=== PATIENT | female | born 1980 | race Caucasian/White ===

== ENCOUNTER 2017-12-08 06:20 | Inpatient (IN) | payer OTHER ==
--- NOTE | 2017-12-08 06:58 | PN ---
Delivery - Delivery Vaginal Delivery: Spontaneous Episiotomy/Laceration: None EBL (cc): 250 Remarks - Remarks Remarks: Patient came fully dilated the delivered a live girl over intact perineum. Nose / Oropharynx suctioned @ perineum. Cord clamped and cut. Placenta expelled spontaneously intact.
[2017-12-08] MEDS: OXYTOCIN 20 UNITS in 0.9% NS 20 UNIT/1,000 ML INFUS.BAG IV SCH ×2 (07:00→13:00)
[2017-12-08] MEDS: IBUPROFEN 600 MG TABLET (FP) PO PRN ×3 (07:10→17:30)
[2017-12-08] MEDS ORDERED: ACETAMINOPHEN 500 MG TABLET (FP) ONE (07:15)
[2017-12-08] MEDS ORDERED: IBUPROFEN 600 MG TABLET (FP) PO ONE (07:15)
--- NOTE | 2017-12-08 07:19 | HP ---
Past Medical History - Primary Care Physician PCP:: Junior Spears - Admission Chief Complaint: 37yo P1 with at EGA 39w 2d admitted in second stage of labor. History of Present Illness: Pt with SROM at about 6 am and velia since 3am, presented fully dilated and delivered precipitously. 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: Alzheimer's, CVA, Dementia, Migraine, Multiple Sclerosis, Peripheral Neuropathy, Parkinson's, Seizure, Syncope, TIA, Vertigo, Other Cardiovascular: No: AFIB, Aneurysm, Aortic Insufficiency, Aortic Stenosis, CAD, CHF, Deep Vein Thrombosis, HTN, Hyperlipdemia, PR, Mitral Insufficiency, Mitral Stenosis, Murmur, Pulmonary Hypertension, Other Pulmonary: Yes: Asthma Gastrointestinal: No: Ascites, Cancer, Constipation, Crohn's Disease, Diverticulitis, Diverticulosis, Esophageal Varices, Gastritis, GERD, GI Bleed, Hemorrhoids, Hiatal Hernia, Inflamatory Bowel Disease, Irritable Bowel Disease, Pancreatitis, Peptic Ulcer Disease, Ulcerative Colitis, Other Hepatobiliary: No: Cirrhosis, Cholelithiasis, Cholecystitis, Choledocholithiasis , Hepatitis A, Hepatitis B, Hepatitis C, Other Renal/: No: Renal Failure, Renal Inusuff, BPH, Cancer, Hematuria, Hemodialysis , Neurogenic Bladder, Renal Calculi, UTI, Other Reproductive: No: Ectopic , Endometriosis, Fibroids, PID, Polycystic Ovary Syndrome, Postmenopausal, Other ...: 2 ...Para: 1 Heme/Onc: No: Anemia, B12 Deficiency, Bleeding Disorder, Cancer, Current Chemotherapy, Current Radiation Therapy, Hemochromatosis, Hypercoaguable State, Myeloproliferative Synd, Sickle Cell Disease, Sickle Cell Trait, Thrombocytopenia, Other Infectious Disease: No: AIDS, C-Diff, Herpes Zoster, HIV, MRSA, STD's, Tuberculosis, VREF, Other Psych: No: Addictions, Anxiety, Bipolar, Depression, Panic, Psychosis, Schizophrenia, Other Musculoskeletal: No: Bursitis, Chronic low back pain, Hemiparesis, Hemiplegia, Osteoarthritis, Paraplegia, Other Rheumatology: No: Fibromyalgia, Gout, Lupus, Rheumatoid Arthritis, Sarcoidosis, Vasculitis, Other ENT: No: Allergic Rhinitis, Sinusitis, Other Endocrine: No: Eduardo's Disease, Camanche's Disease, Diabetes Insipidus, Diabetes Mellitus, Hyperparathyroidism, Hyperthyroidism, Hypothyroidism, Osteopenia, SIADH, Other Dermatology: No: Basal Cell, Cellulitis, Eczema, Melanoma, Psoriasis, Squamous Cell, Other - Past Surgical History Past Surgical History: Yes: Cholecystectomy Hx Myomectomy: No Hx Transabdominal Cerclage: No - Smoking History Have you smoked in the past 12 months: No - Alcohol/Substance Use Hx Alcohol Use: No History of Substance Use: reports: None - Social History Usual Living Arrangement: Yes: With Spouse, With Child ADL: Independent 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 History of Recent Travel: No Home Medications - Allergies Allergies/Adverse Reactions: Allergies Allergy/AdvReac Type Severity Reaction Status Date / Time No Known Allergies Allergy Verified 12/08/17 07:21 Family Disease History - Family Disease History Family History: Unremarkable Review of Systems Findings/Remarks: Active labor and pushing - Review of Systems Constitutional: reports: Other (Labor) Eyes: reports: No Symptoms HENT: reports: No Symptoms Neck: reports: No Symptoms Cardiovascular: reports: No Symptoms Respiratory: reports: No Symptoms Gastrointestinal: reports: No Symptoms Genitourinary: reports: No Symptoms Breasts: reports: No Symptoms Reported Musculoskeletal: reports: No Symptoms Integumentary: reports: No Symptoms Neurological: reports: No Symptoms Endocrine: reports: No Symptoms Hematology/Lymphatic: reports: No Symptoms Psychiatric: reports: No Symptoms Pain Intensity: 9 Physical Exam - Maternity Constitutional: Yes: Well Nourished, No Distress, Calm Eyes: Yes: WNL, Conjunctiva Clear HENT: Yes: WNL, Atraumatic, Normocephalic Neck: Yes: WNL, Supple, Trachea Midline Cardiovascular: Yes: WNL, Regular Rate and Rhythm Lungs: Clear to auscultation, Normal air movement - Abdominal Exam/OB Fundal Height: 39 Number of Fetuses: Single Presentation: Vertex Contractions: Yes - Vaginal Exam/OB Vaginal Bleediing: No Dilatation (cm): 10 Presentation: Vertex/Position - Physical Exam Musculoskeletal: Yes: WNL Extremities: Yes: WNL Edema: No Integumentary: Yes: WNL Deep Tendon Reflex Grade: Normal +2 ...Motor Strength: WNL Psychiatric: Yes: WNL, Alert, Oriented Hemorrhage Risk Assessment - Risk Factors Medium Risk Factors: Yes: None High Risk Factors: Yes: None Risk Score: 1 Risk Level: Medium Risk Assessment/Plan 37yo P1 with at EGA 39w 2d admitted in second stage of labor. Pt proceeded to have w/o complications over intact perineum.
[2017-12-08] MEDS ORDERED: ACETAMINOPHEN 500 MG TABLET (FP) PO ONE (07:30)
[2017-12-08] MEDS ORDERED: BISACODYL 10 MG SUPP.RECT RC PRN (07:43)
[2017-12-08] MEDS ORDERED: BENZOCAINE 20% 57 GM BOTTLE TP PRN (07:43)
[2017-12-08] MEDS ORDERED: WITCH HAZEL 50% (TUCKS) 40 PAD/JAR PAD TP PRN (07:43)
[2017-12-08] MEDS ORDERED: METHYLERGONOVINE MALEATE 0.2 MG/1 ML AMP IM PRN (07:43)
[2017-12-08] MEDS ORDERED: BENZOCAINE 28 GM HEMORRHOIDAL OINTMENT TP PRN (07:43)
[2017-12-08 07:59] LABS: BASO % 0.3 % (0-2.0); EOS % 0.2 % (0-4.5); HEMATOCRIT 40.7 % (32.4-45.2); HEMOGLOBIN 13.6 GM/dL (10.7-15.3); LYMPH % 15.1 % (8-40); MCH 30.6 pg (25.7-33.7); MCHC 33.4 g/dl (32.0-36.0); MEAN CELL VOLUME 91.7 fl (80-96); MEAN PLT VOLUME 11.2 fl (7.5-11.1); MONO % 3.2 % (3.8-10.2); NEUT % 81.2 % (42.8-82.8); PLATELET COUNT 121 K/MM3 (134-434); RBC 4.44 M/mm3 (3.60-5.2); RDW 13.5 % (11.6-15.6); WHITE BLOOD COUNT 9.3 K/mm3 (4.0-10.0)
[2017-12-08 08:18] LABS: INR 0.81 (0.83-1.09); PROTHROMBIN TIME (PATIENT) 9.2 SEC (9.7-13.0)
[2017-12-08 08:21] LABS: ACTIVATED PTT 28.4 SECONDS (25.2-36.5)
[2017-12-08 08:32] VITALS: BMI 28.3
[2017-12-08 08:59] LABS: ANION GAP 9 MMOL/L (8-16); BLOOD UREA NITROGEN 11 mg/dL (7-18); CALCIUM 9.1 mg/dL (8.5-10.1); CHLORIDE 106 mmol/L (98-107); CO2 24 mmol/L (21-32); CREATININE 0.8 mg/dL (0.55-1.3); GLUCOSE,RANDOM 95 mg/dL (74-106); POTASSIUM 4.1 mmol/L (3.5-5.1); SODIUM 139 mmol/L (136-145)
--- NOTE | 2017-12-08 09:28 | PN ---
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 Luna
[2017-12-08] MEDS: PRENATAL VITAMINS W/ FOLIC ACID TABLET (FP) PO SCH (10:03)
[2017-12-08] MEDS ORDERED: TUBERCULIN PPD 5 TU/0.1ML SYRINGE (IN PATIENT USE ONLY) ID ONE (10:15)
[2017-12-08] MEDS: ACETAMINOPHEN 325 MG TABLET (FP) PO PRN (17:27)
[2017-12-09] MEDS: IBUPROFEN 600 MG TABLET (FP) PO PRN ×2 (02:56→15:12)
[2017-12-09] MEDS: ACETAMINOPHEN 325 MG TABLET (FP) PO PRN ×2 (02:57→15:14)
[2017-12-09 08:04] LABS: BASO % 0.3 % (0-2.0); EOS % 0.9 % (0-4.5); HEMATOCRIT 35.2 % (32.4-45.2); HEMOGLOBIN 11.8 GM/dL (10.7-15.3); MCH 30.6 pg (25.7-33.7); MCHC 33.5 g/dl (32.0-36.0); MEAN CELL VOLUME 91.3 fl (80-96); MEAN PLT VOLUME 11.2 fl (7.5-11.1); MONO % 4.5 % (3.8-10.2); NEUT % 70.3 % (42.8-82.8); PLATELET COUNT 107 K/MM3 (134-434); RBC 3.85 M/mm3 (3.60-5.2); RDW 13.6 % (11.6-15.6); WHITE BLOOD COUNT 8.9 K/mm3 (4.0-10.0)
[2017-12-09] MEDS: PRENATAL VITAMINS W/ FOLIC ACID TABLET (FP) PO SCH (09:03)
--- NOTE | 2017-12-09 09:29 | PN ---
Post Progress Note - Subjective Subjective: No complaints Post Day: 1 Type of Delivery: Vital Signs: Vital Signs Temperature 98 F 12/09/17 07:20 Pulse Rate 62 12/09/17 07:20 Respiratory Rate 20 12/09/17 07:20 Blood Pressure 108/72 12/09/17 07:20 O2 Sat by Pulse Oximetry (%) 100 12/08/17 08:45 Breast Exam: Yes: Soft Uterus: Yes: Fundus Firm, Fundus below umbilicus, Non-tender Abdomen/GI: Yes: Abdomen soft, Passing flatus, Tolerating PO Lochia: Yes: Rubra Lochia, amount: Small Extremities: Yes: Calves non-tender Perineum: Yes: Intact Activity: Ambulating - Labs Labs: CBC WBC 8.9 K/mm3 (4.0-10.0) 12/09/17 06:15 RBC 3.85 M/mm3 (3.60-5.2) 12/09/17 06:15 Hgb 11.8 GM/dL (10.7-15.3) 12/09/17 06:15 Hct 35.2 % (32.4-45.2) 12/09/17 06:15 MCV 91.3 fl (80-96) 12/09/17 06:15 MCH 30.6 pg (25.7-33.7) 12/09/17 06:15 MCHC 33.5 g/dl (32.0-36.0) 12/09/17 06:15 RDW 13.6 % (11.6-15.6) 12/09/17 06:15 Plt Count 107 K/MM3 (134-434) L 12/09/17 06:15 MPV 11.2 fl (7.5-11.1) H 12/09/17 06:15 Absolute Neuts (auto) 6.3 K/mm3 (1.5-8.0) 12/09/17 06:15 Neutrophils % 70.3 % (42.8-82.8) 12/09/17 06:15 Lymphocytes % 24.0 % (8-40) D 12/09/17 06:15 Monocytes % 4.5 % (3.8-10.2) 12/09/17 06:15 Eosinophils % 0.9 % (0-4.5) D 12/09/17 06:15 Basophils % 0.3 % (0-2.0) 12/09/17 06:15 Nucleated RBC % 0 % (0-0) 12/09/17 06:15 Assessment/Plan 37yo P2 s/p , doing well stable, afebrile. care instructions reviewed. Continue routine care. Ambulation encouraged Discharge instruction reviewed.
[2017-12-09] MEDS ORDERED: PNEUMOCOCCAL 23 VACCINE 0.5 ML VIAL IM ONE (14:00)
[2017-12-09] MEDS ORDERED: PNEUMOC 13-VAL CONJ-DIP CRM/PF 0.5 ML DISP.SYRIN IM ONE (14:00)
[2017-12-09] MEDS ORDERED: SENNOSIDES/DOCUSATE COMBO (SENNA PLUS) TABLET (UD) PO PRN (22:00)
[2017-12-10] MEDS: IBUPROFEN 600 MG TABLET (FP) PO PRN ×2 (03:51→08:50)
[2017-12-10] MEDS: ACETAMINOPHEN 325 MG TABLET (FP) PO PRN ×2 (03:51→08:49)
[2017-12-10] MEDS: PRENATAL VITAMINS W/ FOLIC ACID TABLET (FP) PO SCH (09:18)
[2017-12-10 10:58] VITALS: BP 130/69; PULSE 83; TEMP 98.2
--- NOTE | 2017-12-10 14:34 | DS ---
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 Vital Signs: Vital Signs Temperature 98.2 F 12/10/17 10:00 Pulse Rate 83 12/10/17 10:00 Respiratory Rate 20 12/10/17 10:00 Blood Pressure 130/69 12/10/17 10:00 O2 Sat by Pulse Oximetry (%) 100 12/08/17 08:45 Constitutional: Yes: Well Nourished, No Distress, Calm Eyes: Yes: WNL, Conjunctiva Clear HENT: Yes: WNL, Atraumatic, Normocephalic Neck: Yes: WNL, Supple, Trachea Midline Cardiovascular: Yes: WNL, Regular Rate and Rhythm Respiratory: Yes: WNL, Regular, CTA Bilaterally Gastrointestinal: Yes: WNL, Normal Bowel Sounds, Soft ...Rectal Exam: Yes: WNL Renal/: Yes: WNL ....Post : Yes: Uterus firm, Uterus non-tender, Slight lochia rubra Breast(s): Yes: WNL Musculoskeletal: Yes: WNL Extremities: Yes: WNL Edema: Yes Edema: LLE: Trace, RLE: Trace Integumentary: Yes: WNL Neurological: Yes: WNL, Alert, Oriented ...Motor Strength: WNL Psychiatric: Yes: WNL, Alert, Oriented Labs: CBC, BMP 12/09/17 06:15 12/08/17 07:40 Delivery - Delivery Vaginal Delivery: No Problems, Spontaneous Type of Anesthesia: None Episiotomy/Laceration: None EBL (cc): 300 Delivery, Single - Stages of Labor Date 1st Stage Initiatied: 12/08/17 Time 1st Stage Initiated: 06:00 Date 2nd Stage Initiated: 12/08/17 Time 2nd Stage Initiated: 06:30 Date of Delivery: 12/08/17 Time of Delivery: 06:40 Time Placenta Delivered: 06:45 Placenta: Yes: Spontaneous, Normal Configuration - 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 You may walk unlimited ronaldo of and climb stairs. You may resume driving the car when you feel safe and comfortable behind the wheel. No sexual activity as instructed. Wound care If you have a bandage, leave it on, and keep dry for 48-72 hours. After that time discard the outer bandage. If they are tapes on the skin under the out of bandage leave them in place. They will peel off in the next 7 to 10 days. Do Not Peel them off. You may shower the day after surgery. If there are tapes present on the skin, you may shower over them. Diet There are no dietary restrictions. Eat healthy, high-fiber foods. Drink 6 to 8 glasses of liquid each day. This will assist in keeping your bowels are regular. Pain management You may take Tylenol or acetaminophen or Ibuprofen (for example, Motrin, Advil etc.) from my pain prescription medication is ordered should be taken as prescribed for moderate to severe pain. Call MD for any of the following: Severe pain not relieved by medication Fever of 101 or higher Excessive bleeding or drainage on dressing Inability to urinate Referrals: Junior Spears MD [Staff Physician] - Disposition: HOME - Home Medications Comprehensive Discharge Medication List: Ambulatory Orders No122/Iron/Folic Acid [ Multi Tablet] 1 tab PO DAILY 12/08/17
== END 2017-12-10 12:25 | disposition home or self-care (01) | DRG 775 ==
LOC: JLDR 06:20 → J3W 09:03
PROVIDERS: ADMIT Obstetrics & Gynecology; ATTEND Obstetrics & Gynecology
PROC: 10E0XZZ Delivery of Products of Conception, External Approach (ICD-10-PCS; principal; 2017-12-08)
DX: O80 Encounter for full-term uncomplicated delivery (principal); Z3A.39 39 weeks gestation of pregnancy; Z37.0 Single live birth
CPT/HCPCS: 36415; 59409; 80048; 85025; 85610; 85730; 86593; 86850; 86870; 86900; 86901; 86902; 90732; G0009